=== PATIENT | female | born 1940 | race Caucasian/White ===

== ENCOUNTER 2021-08-25 09:46 | Inpatient (IN) | payer MEDICARE, OTHER ==
[2021-08-25] MEDS ORDERED: Nitroglycerin 2% Ointment 1 INCH/1 GM Packet ONE (10:12)
[2021-08-25] MEDS ORDERED: Aspirin Chewable 81 MG TAB ONE (10:12)
[2021-08-25 10:19] LABS: #Basophils 0.1 10x3/uL (0.0-0.2); #Eosinphils 0.2 10x3/uL (0.0-0.5); #Monocytes 0.5 10x3/uL (0.0-1.1); #Neutrophils 3.6 10x3/uL (1.5-8.4); %Basophils 0.8 % (0.0-2.0); %Eosinophils 2.4 % (0.0-6.0); %Lymphocytes 35.4 % (18.0-47.0); %Monocytes 7.1 % (0.0-10.0); %Neutrophils 54.1 % (40.0-75.0); Mean Corpuscular HGB CONC 33.1 g/dL (32.0-36.0); Mean Corpuscular Hemoglobin 28.4 pg (27.0-33.0); Mean Corpuscular Volume 85.8 fl (81.6-98.3); Mean Platelet Volume 9.5 fl (7.4-10.4); Platelet Count 214 10x3/uL (150-450); RBC Distribution Width 13.4 % (11.5-14.5); Red Blood Cell (RBC) Count 4.22 10x6/uL (3.90-5.03); White Blood Cell (WBC) Count 6.6 10x3/uL (3.5-10.5)
[2021-08-25 10:36] LABS: ALT (SGPT) 28 U/L (8-55); AST (SGOT) 29 U/L (5-34); Albumin 4.4 g/dL (3.4-4.8); Alkaline Phosphatase 69 U/L (40-110); Anion Gap 15 mmol/L (10-20); BUN (Urea Nitrogen) 14 mg/dL (9.8-20.1); Bilirubin, Total 0.9 mg/dL (0.2-1.2); CK (CPK) 42 U/L (29-168); Calc. Creatinine Clearance 0 mL/min (70-130); Calcium 9.4 mg/dL (7.8-10.44); Carbon Dioxide 20 mmol/L (23-31); Chloride 106 mmol/L (98-107); Globulin 3.1 g/dL (2.4-3.5); Glucose 101 mg/dL (83-110); Lipase 32 U/L (8-78); Potassium 4.1 mmol/L (3.5-5.1); Protein, Total 7.5 g/dL (5.8-8.1); Sodium 137 mmol/L (136-145)
[2021-08-25] MEDS ORDERED: Pantoprazole 40 MG VIAL ONE (12:21)
[2021-08-25 13:44] LABS: Troponin I Less than 0.010 ng/mL (< 0.028)
[2021-08-25 14:15] VITALS: BMI 23.0
[2021-08-25] MEDS ORDERED: hydrALAZINE 20 MG/ML VIAL SLOW IVP PRN (15:17)
[2021-08-25] MEDS ORDERED: Mag-Al 1200 mg/1200 mg/30 ML UDCUP PO PRN (15:17)
[2021-08-25] MEDS ORDERED: Ondansetron ODT 4 MG TAB PO PRN (15:18)
[2021-08-25] MEDS ORDERED: Acetaminophen 325 MG TAB PO PRN (15:18)
[2021-08-25] MEDS ORDERED: Nitroglycerin 0.4 MG TAB (25 Tab Bottle) SL PRN (15:19)
[2021-08-25] MEDS ORDERED: Electrolyte Replacement Protocol 1 EACH FS SCH (15:30)
[2021-08-25 16:33] LABS: Troponin I Less than 0.010 ng/mL (< 0.028)
[2021-08-25] MEDS ORDERED: Lisinopril 2.5 MG TAB PO SCH (17:00)
[2021-08-25] MEDS ORDERED: Metoprolol Tartrate 25 MG TAB PO SCH (17:00)
[2021-08-25] MEDS: Metoprolol Tartrate 25 MG TAB PO SCH (20:49)
[2021-08-25] MEDS ORDERED: Atorvastatin Calcium 20 MG TAB PO SCH (21:00)
[2021-08-25] MEDS ORDERED: TICAGRELOR 90 MG TABLET PO SCH (21:00)
[2021-08-25] MEDS: Nitroglycerin 2% Ointment 1 INCH/1 GM Packet TOP SCH (23:29)
[2021-08-26 04:30] LABS: #Eosinphils 0.3 10x3/uL (0.0-0.5); #Monocytes 0.5 10x3/uL (0.0-1.1); #Neutrophils 2.3 10x3/uL (1.5-8.4); %Basophils 0.5 % (0.0-2.0); %Eosinophils 4.4 % (0.0-6.0); %Lymphocytes 45.4 % (18.0-47.0); %Monocytes 9.5 % (0.0-10.0); %Neutrophils 39.8 % (40.0-75.0); Hemoglobin 11.6 g/dL (12.0-15.5); Mean Corpuscular HGB CONC 34.4 g/dL (32.0-36.0); Mean Corpuscular Hemoglobin 29.1 pg (27.0-33.0); Mean Corpuscular Volume 84.5 fl (81.6-98.3); Mean Platelet Volume 9.5 fl (7.4-10.4); Platelet Count 184 10x3/uL (150-450); RBC Distribution Width 13.2 % (11.5-14.5); Red Blood Cell (RBC) Count 3.99 10x6/uL (3.90-5.03); White Blood Cell (WBC) Count 5.7 10x3/uL (3.5-10.5)
[2021-08-26 04:44] LABS: Anion Gap 10 mmol/L (10-20); BUN (Urea Nitrogen) 15 mg/dL (9.8-20.1); Calc. Creatinine Clearance 56 mL/min (70-130); Calcium 9.2 mg/dL (7.8-10.44); Carbon Dioxide 24 mmol/L (23-31); Cardiac Risk 3.3 (Less than 4.5); Chloride 111 mmol/L (98-107); Cholesterol 103 mg/dl (< 200 Desired); Glucose 103 mg/dL (83-110); HDL Cholesterol 31 mg/dL (>60 Neg Risk); LDL Cholesterol, Calculated 50 mg/dL; Magnesium 1.9 mg/dL (1.6-2.6); Phosphorus 2.8 mg/dL (2.3-4.7); Potassium 4.1 mmol/L (3.5-5.1); Sodium 141 mmol/L (136-145); Triglycerides 109 mg/dL (Less than 150)
[2021-08-26] MEDS ORDERED: Magnesium 2 GM/50 ML 2 GM in Premix Bag 1 BAG IVPB SCH (05:15)
[2021-08-26] MEDS: Nitroglycerin 2% Ointment 1 INCH/1 GM Packet TOP SCH (06:20)
[2021-08-26 07:35] VITALS: BP 150/68; TEMP 97.7
[2021-08-26] MEDS: Metoprolol Tartrate 25 MG TAB PO SCH (08:37)
[2021-08-26] MEDS ORDERED: Aspirin Chewable 81 MG TAB PO SCH (09:00)
[2021-08-26] MEDS ORDERED: Lisinopril 2.5 MG TAB PO SCH (09:00)
[2021-08-26 12:34] LABS: Hemoglobin A1c 5.9 % (4.0-6.0)
== END 2021-08-26 10:50 | disposition home or self-care (01) | DRG 392 ==
LOC: CSHERS 09:46 → CSHTELE 13:46
PROVIDERS: ADMIT Internal Medicine; ATTEND Internal Medicine
DX: K21.9 Gastro-esophageal reflux disease without esophagitis (principal); I10 Essential (primary) hypertension; E78.5 Hyperlipidemia, unspecified; I25.10 Atherosclerotic heart disease of native coronary artery without angina pectoris; I25.2 Old myocardial infarction; Z95.5 Presence of coronary angioplasty implant and graft; Z91.041 Radiographic dye allergy status; Z79.82 Long term (current) use of aspirin; Z79.899 Other long term (current) drug therapy; Z90.710 Acquired absence of both cervix and uterus; Z98.49 Cataract extraction status, unspecified eye
CPT/HCPCS: 36415; 71045; 71275; 80048; 80053; 80061; 82550; 83036; 83690; 83735; 83880; 84100; 84443; 84484; 85025; 85379; 93005; 93306; 96374; 96375; C9113; J3475